=== PATIENT | male | born 1950 | race Caucasian/White ===

== ENCOUNTER 2018-04-01 16:37 | Emergency (ER) | payer MEDICARE, SELFPAY ==
[2018-04-01 16:38] VITALS: BP 130/79; PULSE 78; RESP 18; TEMP 36.9; O2SAT 97; BMI 29.1
--- NOTE | 2018-04-01 16:51 | RAD_ITS ---
STUDY: X-RAY - LEFT ANKLE REASON FOR EXAM: Male, 67 years old. Left ankle pain after fall. TECHNIQUE: 3 view(s) of the ankle. COMPARISON: None. FINDINGS: There is generalized osteopenia. Normal visualized distal tibia and fibula. Normal medial and lateral malleoli. Normal tibiotalar articulation and ankle mortise. There are superior and inferior calcaneal spurs. The visualized subtalar, talonavicular, calcaneocuboid and tarsal articulations are normal. There is soft tissue swelling over the lateral malleolus. RAD/Ankle min 3 Views IMPRESSION: Osteopenia with soft tissue swelling. No acute osseous abnormality. Electronically Signed: Enrique Santana MD at 17:50 EDT , Service support ,
--- NOTE | 2018-04-01 18:32 | ED.DCSUM_ITS ---
- ER Visit Summary Date of Service: 04/01/18 Chief Complaint: Patient rolled his ankle prior to arrival he has no other injuries. He is able to ambulate but is more painful when he bears weight. Physical exam is consistent with lateral malleolus tenderness without any laxity no proximal fibular tenderness and no proximal fifth metatarsal tenderness. Test Results: [] X-rays negative for fracture Emergency Department Course and Treatment: [] We will give the patient Aircast and discharge Disposition: [] Discharge stable condition Impression: [] Ankle sprain This note was generated with [employer] dictation software. It may contain incorrect words, spelling, and punctuation that were not noted in review of the chart prior to signing ED Disposition - Plan for ED Patient: Disposition: Home or Assisted Living Chief Complaint: Lower Extremity Injury Instructions: ED Sprain Ankle W X Ray Additional Instructions: Follow-up with your doctor as needed
[2018-04-01 19:23] VITALS: BP 138/74; PULSE 82; RESP 16; O2SAT 98
== END 2018-04-01 19:24 | disposition home or self-care (01) ==
LOC: ED 18:42
PROVIDERS: Emergency Provider Emergency Medicine
DX: S93.402A Sprain of unspecified ligament of left ankle, initial encounter (principal); X50.1XXA Overexertion from prolonged static or awkward postures, initial encounter; Y93.9 Activity, unspecified; Y92.9 Unspecified place or not applicable; I10 Essential (primary) hypertension; E78.00 Pure hypercholesterolemia, unspecified; Z79.899 Other long term (current) drug therapy
CPT/HCPCS: 73610; 99283